=== PATIENT | male | born 1955 | race Caucasian/White ===

== ENCOUNTER 2016-12-29 07:44 | Emergency (ER) | payer MEDICARE ==
[2016-12-29 08:06] LABS: HEMOGLOBIN 14.4 gm/dl (14.0-17.5); RED BLOOD COUNT 4.54 M/UL (4.20-5.50); WHITE BLOOD COUNT 13.9 K/UL (4.5-11.0)
[2016-12-29 08:21] LABS: BUN/CREATININE RATIO 19 (0-10)
== END 2016-12-29 08:19 | disposition admitted as inpatient to this hospital (09) ==
LOC: ER1 07:44
PROVIDERS: Emergency Medicine
DX: I21.19 ST elevation (STEMI) myocardial infarction involving other coronary artery of inferior wall (principal); I12.9 Hypertensive chronic kidney disease with stage 1 through stage 4 chronic kidney disease, or unspecified chronic kidney disease; E11.22 Type 2 diabetes mellitus with diabetic chronic kidney disease; N18.4 Chronic kidney disease, stage 4 (severe); G70.00 Myasthenia gravis without (acute) exacerbation; M06.9 Rheumatoid arthritis, unspecified; I25.10 Atherosclerotic heart disease of native coronary artery without angina pectoris; E78.5 Hyperlipidemia, unspecified; Z86.718 Personal history of other venous thrombosis and embolism; Z88.8 Allergy status to other drugs, medicaments and biological substances; Z79.899 Other long term (current) drug therapy
CPT/HCPCS: 36415; 71010; 80053; 82550; 82553; 83874; 84484; 85025; 85610; 85730; 93005; 99152; 99153; 99285; C1769; C1894; J0360; J0461; J0583; J1644; J2250; J3010; J7040; Q9965

== ENCOUNTER → 2020-04-29 | Outpatient (CLI) | payer MEDICARE, OTHER ==
[~2020-04-29] MED LIST: ATORVASTATIN CA40 MG PO; AZULFIDINE 500500 MG PO; BENADRYL 25MG C25 MG PO; CATAPRES 0.1MG0.1 MG PO; CLONIDINE HCL0.3 MG PO; CLOPIDOGREL75 MG PO; DILTIAZEM 24HR360 MG PO; ELIQUIS5 M1 PO; ENOXAPARIN100 MG/1 M SC; FLAGYL500 MG PO; FOLIC ACID 1 MG1 MG PO; HYDRALAZINE HCL50 MG PO; HYDROCODON-ACE1 EAC2 PO; HYGROTON TAB 2525 MG PO; K-DUR TAB 20 M20 MEQ PO; LACTINEX TABLET1 EA PO; LEVOFLOXACIN500 MG PO; LOPRESSOR 25 MG25 MG PO; LOPRESSOR 50 MG50 MG PO; MAGNESIUM400 M2 PO; MAGOX PO; MESTINON TAB 6060 MG PO; NORCO 7.5-3251 EACH PO; PREDNISONE 5 MG5 MG PO; PREDNISONE5 MG PO; PROTONIX 40 MG40 M1 PO; SERTRALINE HCL50 MG PO; WARFARIN SODIU2.5 MG PO; WARFARIN SODIUM4 MG PO; ZOFRAN 4 MG TAB4 MG PO
== END ==
LOC: CT 12:25
DX: C09.1 Malignant neoplasm of tonsillar pillar (anterior) (posterior) (principal); Z98.890 Other specified postprocedural states
CPT/HCPCS: 36415; 70491; 82565; Q9967

== ENCOUNTER → 2020-08-01 | Outpatient (CLI) | payer MEDICARE, OTHER | LOC: OPSV 10:18 → CT 13:30 | DX: C09.1 Malignant neoplasm of tonsillar pillar (anterior) (posterior) (principal); I26.99 Other pulmonary embolism without acute cor pulmonale; E86.0 Dehydration | CPT/HCPCS: 70491; 96360; 96361; J7030; Q9963 ==

== ENCOUNTER 2020-08-24 09:41 | Inpatient (IN) | payer MEDICARE, OTHER ==
[~2020-08-24] VITALS: Ht 172.7 cm; Wt 89.4 kg
[~2020-08-24 09:41] MED LIST changes: -ATORVASTATIN CA40 MG PO; -FLAGYL500 MG PO; -HYDROCODON-ACE1 EAC2 PO; -LACTINEX TABLET1 EA PO; -LEVOFLOXACIN500 MG PO; -MAGOX PO; -PREDNISONE5 MG PO; -PROTONIX 40 MG40 M1 PO; -SERTRALINE HCL50 MG PO; -WARFARIN SODIU2.5 MG PO; -ZOFRAN 4 MG TAB4 MG PO
[2020-08-24 10:47] LABS: HEMOGLOBIN 13.2 gm/dl (14.0-17.5); RED BLOOD COUNT 4.48 M/UL (4.20-5.50); WHITE BLOOD COUNT 20.7 K/UL (4.5-11.0)
[2020-08-24] MEDS ORDERED: SERTRALINE HCL50 MG PO (18:17)
[2020-08-24] MEDS ORDERED: WARFARIN SODIU2.5 MG PO (18:18)
[2020-08-24] MEDS ORDERED: ATORVASTATIN CA40 MG PO (18:18)
[2020-08-25 01:15] LABS: RED BLOOD COUNT 3.76 M/UL (4.20-5.50); WHITE BLOOD COUNT 13.4 K/UL (4.5-11.0)
[2020-08-26 02:34] LABS: HEMOGLOBIN 11.9 gm/dl (14.0-17.5); RED BLOOD COUNT 4.1 M/UL (4.20-5.50); WHITE BLOOD COUNT 10.1 K/UL (4.5-11.0)
[2020-08-26 02:56] LABS: BUN/CREATININE RATIO 15 (0-10)
[2020-08-27 02:03] LABS: ADENOVIRUS F 40/41 Not Detected (Negative); ASTROVIRUS Not Detected (Negative); CAMPYLOBACTER Not Detected (Negative); CLOSTRIDIUM DIFFICILE TOX A/B Not Detected (Negative); CRYPTOSPORIDIUM Not Detected (Negative); E.COLI 0157 Not Detected (Negative); ENTAMOEBA HISTOLYTICA Not Detected (Negative); ENTEROAGGREGATIVE E.COLI (EAEC Not Detected (Negative); ENTEROPATHOGENIC E.COLI (EPEC) Not Detected (Negative); ENTEROTOXIGENIC E.COLI (ETEC) Not Detected (Negative); GIARDIA LAMBLIA Not Detected (Negative); NOROVIRUS GI/GII Not Detected (Negative); PLESIOMONAS SHIGELLOIDES Not Detected (Negative); ROTOVIRUS A Not Detected (Negative); SALMONELLA Not Detected (Negative); SAPOVIRUS Not Detected (Negative); SHIG/ENTEROINVAS.ECOLI (EIEC) Not Detected (Negative); SHIGA-LIK TOX.PRO.E.COLI (STEC Not Detected (Negative); VIBRIO Not Detected (Negative); VIBRIO CHOLERAE Not Detected (Negative); YERSINIA ENTEROCOLITICA Not Detected (Negative)
[2020-08-27 03:46] LABS: HEMOGLOBIN 11.9 gm/dl (14.0-17.5); RED BLOOD COUNT 4.08 M/UL (4.20-5.50); WHITE BLOOD COUNT 7.7 K/UL (4.5-11.0)
[2020-08-27 04:05] LABS: BUN/CREATININE RATIO 10 (0-10)
[2020-08-27] MEDS ORDERED: PROTONIX 40 MG40 M1 PO (10:26)
[2020-08-27] MEDS ORDERED: LEVOFLOXACIN500 MG PO (10:26)
[2020-08-27] MEDS ORDERED: LACTINEX TABLET1 EA PO (10:26)
[2020-08-27] MEDS ORDERED: ZOFRAN 4 MG TAB4 MG PO (10:26)
[2020-08-27] MEDS ORDERED: FLAGYL500 MG PO (10:26)
[2020-08-27] MEDS ORDERED: MAGNESIUM400 M2 PO (16:33)
[2020-08-27] MEDS ORDERED: HYDRALAZINE HCL50 MG PO (18:34)
[2020-11-03] MEDS ORDERED: PREDNISONE5 MG PO (07:24)
[2020-11-03] MEDS ORDERED: HYDROCODON-ACE1 EAC2 PO (07:26)
[2020-11-03] MEDS ORDERED: MAGOX PO (07:26)
== END 2020-08-27 19:00 | disposition home or self-care (01) | DRG 872 ==
LOC: ER1 09:41 → CDU 17:47 → PROG CARE 20:15
PROVIDERS: Nurse Practitioner; ADMIT Internal Medicine
DX: A41.89 Other specified sepsis (principal); A04.9 Bacterial intestinal infection, unspecified; M62.82 Rhabdomyolysis; F11.20 Opioid dependence, uncomplicated; N17.9 Acute kidney failure, unspecified; Z20.822 Contact with and (suspected) exposure to COVID-19; E86.0 Dehydration; E87.6 Hypokalemia; E83.42 Hypomagnesemia; I16.0 Hypertensive urgency; M06.9 Rheumatoid arthritis, unspecified; E78.5 Hyperlipidemia, unspecified; D35.02 Benign neoplasm of left adrenal gland; I12.9 Hypertensive chronic kidney disease with stage 1 through stage 4 chronic kidney disease, or unspecified chronic kidney disease; N18.30 Chronic kidney disease, stage 3 unspecified; D09.8 Carcinoma in situ of other specified sites; F17.290 Nicotine dependence, other tobacco product, uncomplicated; G70.00 Myasthenia gravis without (acute) exacerbation; D04.4 Carcinoma in situ of skin of scalp and neck; D00.08 Carcinoma in situ of pharynx; I25.2 Old myocardial infarction; Z95.1 Presence of aortocoronary bypass graft; Z86.711 Personal history of pulmonary embolism; Z79.01 Long term (current) use of anticoagulants; Z86.718 Personal history of other venous thrombosis and embolism; Z90.49 Acquired absence of other specified parts of digestive tract; Z88.6 Allergy status to analgesic agent; Z80.7 Family history of other malignant neoplasms of lymphoid, hematopoietic and related tissues
CPT/HCPCS: 36415; 71045; 80053; 81001; 82550; 82553; 83605; 83690; 83735; 83874; 84132; 84484; 85025; 85027; 85610; 87040; 87507; 93005; 96372; 96374; 96375; 97161; 97165; 99285; C9113; J0360; J0500; J2543; J3370; J3475; J3480; J7030; J7040; Q9965; U0002

== ENCOUNTER → 2020-09-27 | Day surgery (SDC) | payer MEDICARE, OTHER ==
[~2020-09-27] MED LIST changes: +ATORVASTATIN CA40 MG PO; +FLAGYL500 MG PO; +HYDROCODON-ACE1 EAC2 PO; +LACTINEX TABLET1 EA PO; +LEVOFLOXACIN500 MG PO; +MAGOX PO; +PREDNISONE5 MG PO; +PROTONIX 40 MG40 M1 PO; +SERTRALINE HCL50 MG PO; +WARFARIN SODIU2.5 MG PO; +ZOFRAN 4 MG TAB4 MG PO
== END | disposition home or self-care (01) ==
LOC: OR 06:23
PROVIDERS: Internal Medicine Gastroenterology
PROC: 0DJ08ZZ Inspection of Upper Intestinal Tract, Via Natural or Artificial Opening Endoscopic (ICD-10-PCS; principal; 2020-09-27 09:55)
DX: K22.8 Other specified diseases of esophagus (principal); K21.00 Gastro-esophageal reflux disease with esophagitis, without bleeding; K29.70 Gastritis, unspecified, without bleeding; I25.10 Atherosclerotic heart disease of native coronary artery without angina pectoris; I10 Essential (primary) hypertension; R73.03 Prediabetes; M19.90 Unspecified osteoarthritis, unspecified site; E66.9 Obesity, unspecified; Z68.31 Body mass index [BMI] 31.0-31.9, adult; Z20.822 Contact with and (suspected) exposure to COVID-19; Z88.5 Allergy status to narcotic agent; Z88.8 Allergy status to other drugs, medicaments and biological substances; Z95.5 Presence of coronary angioplasty implant and graft; Z95.1 Presence of aortocoronary bypass graft; Z79.01 Long term (current) use of anticoagulants; Z79.891 Long term (current) use of opiate analgesic; Z79.02 Long term (current) use of antithrombotics/antiplatelets; Z79.899 Other long term (current) drug therapy; Z86.718 Personal history of other venous thrombosis and embolism; Z86.711 Personal history of pulmonary embolism
CPT/HCPCS: J2001; J2704; J7040

== ENCOUNTER → 2020-11-03 | Day surgery (SDC) | payer MEDICARE, OTHER | END | disposition home or self-care (01) | LOC: OR 06:32 | DX: Z12.11 Encounter for screening for malignant neoplasm of colon (principal); D12.0 Benign neoplasm of cecum; D12.2 Benign neoplasm of ascending colon; D12.3 Benign neoplasm of transverse colon; K29.50 Unspecified chronic gastritis without bleeding; K21.00 Gastro-esophageal reflux disease with esophagitis, without bleeding; I10 Essential (primary) hypertension; Z88.5 Allergy status to narcotic agent; D68.32 Hemorrhagic disorder due to extrinsic circulating anticoagulants; E66.9 Obesity, unspecified; Z68.29 Body mass index [BMI] 29.0-29.9, adult; Z20.822 Contact with and (suspected) exposure to COVID-19; Z95.1 Presence of aortocoronary bypass graft; Z95.5 Presence of coronary angioplasty implant and graft; I25.10 Atherosclerotic heart disease of native coronary artery without angina pectoris; F41.9 Anxiety disorder, unspecified; G70.00 Myasthenia gravis without (acute) exacerbation | CPT/HCPCS: J0171; J0360; J2704; J3010; J7040 ==

== ENCOUNTER → 2020-11-09 | Outpatient (CLI) | payer MEDICARE | LOC: OPSV 09:15 → CT 13:00 | DX: C09.1 Malignant neoplasm of tonsillar pillar (anterior) (posterior) (principal); G70.00 Myasthenia gravis without (acute) exacerbation; Z86.718 Personal history of other venous thrombosis and embolism; I26.99 Other pulmonary embolism without acute cor pulmonale; E86.0 Dehydration | CPT/HCPCS: 70491; 96360; 96361; J7030; Q9967 ==

== ENCOUNTER → 2021-05-29 | Outpatient (CLI) | payer MEDICARE ==
[~2021-05-29] MED LIST changes: +EPINEPHRIN0.3 MG/0.3 INJ; -LOPRESSOR 50 MG50 MG PO; +MAGNESIUM OXID400 M1 PO; -MAGOX PO; +WARFARIN SODIUM5 MG PO
== END ==
LOC: OPSV 08:11 → CT 09:00
DX: C09.1 Malignant neoplasm of tonsillar pillar (anterior) (posterior) (principal); E86.0 Dehydration; G70.00 Myasthenia gravis without (acute) exacerbation; I26.99 Other pulmonary embolism without acute cor pulmonale; Z86.718 Personal history of other venous thrombosis and embolism; Z98.890 Other specified postprocedural states; K11.8 Other diseases of salivary glands; R91.8 Other nonspecific abnormal finding of lung field
CPT/HCPCS: 70491

== ENCOUNTER 2021-08-02 07:03 | Inpatient (IN) | payer MEDICARE ==
[~2021-08-02] VITALS: Ht 172.7 cm; Wt 95.1 kg
[~2021-08-02 07:03] MED LIST changes: -ATORVASTATIN CA40 MG PO; -AZULFIDINE 500500 MG PO; -PREDNISONE 5 MG5 MG PO; -WARFARIN SODIU2.5 MG PO; -WARFARIN SODIUM5 MG PO
[2021-08-02 07:36] LABS: HEMOGLOBIN 13.8 gm/dl (14.0-17.5); RED BLOOD COUNT 4.72 M/UL (4.20-5.50); WHITE BLOOD COUNT 14.4 K/UL (4.5-11.0)
[2021-08-02 08:10] LABS: BUN/CREATININE RATIO 17 (0-10)
[2021-08-02] MEDS ORDERED: IMMUNE GLOBULIN IV (11:35)
[2021-08-02] MEDS ORDERED: FLOXIN 0.3% OTIC5 ML EYEBOTH (11:36)
[2021-08-02] MEDS ORDERED: DUREZOL5 ML EYEBOTH (11:36)
[2021-08-02] MEDS ORDERED: PREDFORTE OP SUS5 ML OU (11:37)
[2021-08-02] MEDS ORDERED: CLONIDINE HCL0.3 MG PO ×2 (11:39→11:40)
[2021-08-02] MEDS ORDERED: GLUCOPHAGE 500500 MG PO (11:40)
[2021-08-02] MEDS ORDERED: FLONASE 0.05% N16 GM (11:44)
[2021-08-02] MEDS ORDERED: HYDRALAZINE HCL50 MG PO ×2 (11:46→15:53)
[2021-08-02] MEDS ORDERED: RANOLAZINE ER500 MG PO (11:47)
[2021-08-02] MEDS ORDERED: FIBER TABS625 MG PO (11:50)
[2021-08-02] MEDS ORDERED: WARFARIN SODIU2.5 MG PO (15:59)
[2021-08-02] MEDS ORDERED: WARFARIN SODIUM5 MG PO (18:18)
[2021-08-02] MEDS ORDERED: ATORVASTATIN CA40 MG PO (18:18)
[2021-08-02] MEDS ORDERED: AZULFIDINE 500500 MG PO (18:34)
[2021-08-02] MEDS ORDERED: PREDNISONE 5 MG5 MG PO (18:36)
[2021-08-03 03:26] LABS: HEMOGLOBIN 12.1 gm/dl (14.0-17.5)
[2021-08-03 03:55] LABS: RED BLOOD COUNT 4.1 M/UL (4.20-5.50)
[2021-08-04 04:18] LABS: HEMOGLOBIN 12.8 gm/dl (14.0-17.5); RED BLOOD COUNT 4.22 M/UL (4.20-5.50); WHITE BLOOD COUNT 9.6 K/UL (4.5-11.0)
[2021-08-04 04:42] LABS: BUN/CREATININE RATIO 18 (0-10)
[2021-08-04] MEDS ORDERED: ISOSORBIDE MONO60 MG PO (14:42)
[2021-08-04] MEDS ORDERED: NITROGLYCERIN0.4 MG SL (14:48)
[2021-08-04] MEDS ORDERED: AMLODIPINE BESYL5 MG PO (14:48)
== END 2021-08-04 15:10 | disposition home or self-care (01) | DRG 305 ==
LOC: ER1 07:03 → CDU 08:52 → PROG CARE 19:50
PROVIDERS: Emergency Medicine; Nurse Practitioner; Physician Assistant Medical; ADMIT Internal Medicine
DX: I16.0 Hypertensive urgency (principal); I82.501 Chronic embolism and thrombosis of unspecified deep veins of right lower extremity; I25.119 Atherosclerotic heart disease of native coronary artery with unspecified angina pectoris; E78.5 Hyperlipidemia, unspecified; Z20.822 Contact with and (suspected) exposure to COVID-19; E11.9 Type 2 diabetes mellitus without complications; E66.9 Obesity, unspecified; M06.9 Rheumatoid arthritis, unspecified; Z95.1 Presence of aortocoronary bypass graft; Z79.01 Long term (current) use of anticoagulants; Z98.42 Cataract extraction status, left eye; Z98.41 Cataract extraction status, right eye; Z90.49 Acquired absence of other specified parts of digestive tract; Z88.6 Allergy status to analgesic agent; Z82.49 Family history of ischemic heart disease and other diseases of the circulatory system; Z80.9 Family history of malignant neoplasm, unspecified; Z68.31 Body mass index [BMI] 31.0-31.9, adult; Z79.4 Long term (current) use of insulin
CPT/HCPCS: 36415; 71045; 80048; 80053; 82550; 82553; 82962; 83735; 84132; 84484; 85025; 85027; 85610; 85730; 93005; 96374; 96375; 99285; J1644; J2405; J3475; U0002

== ENCOUNTER → 2021-12-12 | Outpatient (CLI) | payer MEDICARE ==
[~2021-12-12] MED LIST changes: +AMLODIPINE BESYL5 MG PO; +ATORVASTATIN CA40 MG PO; +AZULFIDINE 500500 MG PO; +DUREZOL5 ML EYEBOTH; +FIBER TABS625 MG PO; +FLONASE 0.05% N16 GM; +FLOXIN 0.3% OTIC5 ML EYEBOTH; +GLUCOPHAGE 500500 MG PO; +IMMUNE GLOBULIN IV; +ISOSORBIDE MONO60 MG PO; +NITROGLYCERIN0.4 MG SL; +PREDFORTE OP SUS5 ML OU; +PREDNISONE 5 MG5 MG PO; +RANOLAZINE ER500 MG PO; +WARFARIN SODIU2.5 MG PO; +WARFARIN SODIUM5 MG PO
== END ==
LOC: HEART 5 12-05 09:30
DX: I25.10 Atherosclerotic heart disease of native coronary artery without angina pectoris (principal); I11.9 Hypertensive heart disease without heart failure; I70.0 Atherosclerosis of aorta; I08.1 Rheumatic disorders of both mitral and tricuspid valves
CPT/HCPCS: 93306